=== PATIENT | female | born 2000 | race African-American/Black ===

== ENCOUNTER 2023-09-01 09:23 | Day surgery (SDC) | payer OTHER ==
[2023-09-01 10:07] VITALS: BMI 50.8
== END 2023-09-01 12:40 | disposition home or self-care (01) ==
LOC: CSHLD/OP 09:23
PROVIDERS: ATTEND Family Medicine
DX: O36.8330 Maternal care for abnormalities of the fetal heart rate or rhythm, third trimester, not applicable or unspecified (principal); O99.213 Obesity complicating pregnancy, third trimester; E66.9 Obesity, unspecified; O99.513 Diseases of the respiratory system complicating pregnancy, third trimester; J45.909 Unspecified asthma, uncomplicated; Z3A.36 36 weeks gestation of pregnancy; Z79.82 Long term (current) use of aspirin; Z79.899 Other long term (current) drug therapy
CPT/HCPCS: 76815; 76819

== ENCOUNTER 2023-09-20 23:33 | Day surgery (SDC) | payer OTHER ==
[2023-09-20] MEDS ORDERED: hydrALAZINE 20 MG/ML VIAL SLOW IVP PRN (23:57)
[2023-09-20 23:59] VITALS: BMI 51.5
[2023-09-21] MEDS ORDERED: Lactated Ringer's 1,000 ML IV SCH
[2023-09-21 00:38] LABS: Fetal Membranes Rupture No Membranes Rupture (No Rupture)
== END 2023-09-21 02:55 | disposition home or self-care (01) ==
LOC: CSHLD/OP 23:33
PROVIDERS: ATTEND Family Medicine
DX: O47.1 False labor at or after 37 completed weeks of gestation (principal); Z03.71 Encounter for suspected problem with amniotic cavity and membrane ruled out; O98.813 Other maternal infectious and parasitic diseases complicating pregnancy, third trimester; B95.1 Streptococcus, group B, as the cause of diseases classified elsewhere; O99.513 Diseases of the respiratory system complicating pregnancy, third trimester; J45.909 Unspecified asthma, uncomplicated; O99.213 Obesity complicating pregnancy, third trimester; Z3A.39 39 weeks gestation of pregnancy
CPT/HCPCS: 84112; 96360; 99284